=== PATIENT | female | born 1980 | race Caucasian/White ===

== ENCOUNTER 2017-10-08 11:02 | Emergency (ER) | payer OTHER ==
[~2017-10-08] VITALS: Ht 157.4 cm; Wt 99.8 kg
[~2017-10-08 11:02] MED LIST: AMOXICILLIN500 MG PO; ANAPROX DS550 MG PO; ANUSOL-HC25 MG RC; ATIVAN1 MG PO; AUGMENTIN 875875 MG PO; AVPAK AZITHROM250 M1 PO; BACTRIM DS 8001 TA1 PO; BENTYL10 MG PO; CIPROFLOXACIN500 MG PO; CLARITIN10 MG PO; DARVOCET N 1001 TAB PO; DAYPRO600 M1 PO; EFFEXOR XR37.5 MG PO; FLONASE 0.05% 121 EA NAS; HYDROCODONE BIT1 T11 PO; IBU-6600 MG PO; IBU800 MG PO; KEFLEX500 MG PO; LOMOTIL 0.025 M1 TA1 PO; MACROBID100 M1 PO; MOTRIN800 MG PO; NKHM; NO DAILY MEDS; ONDANSETRON HYDR4 M1 PO; ONDANSETRON2 MG/ML PO; OXYCODONE AND A1 T12 PO; PENICILLIN VK500 MG PO; PHENERGAN25 M1 PO; PREDNICOT20 MG PO; PRENATAL1 TA1 PO; PYRIDIUM100 MG PO; ZITHROMAX Z PA250 MG PO; ZOFRAN ODT4 MG SL; ZOFRAN ODT8 MG PO; ZYRTEC10 MG PO; Zofran4 MG PO
[2017-10-08 11:13] VITALS: BP 132/84
[2017-10-08] MEDS ORDERED: NAPROSYN500 MG PO (11:14)
== END 2017-10-08 12:23 | disposition home or self-care (01) ==
LOC: ED 11:02
DX: S93.402A Sprain of unspecified ligament of left ankle, initial encounter (principal); R03.0 Elevated blood-pressure reading, without diagnosis of hypertension; F10.10 Alcohol abuse, uncomplicated; Z79.899 Other long term (current) drug therapy; W19.XXXA Unspecified fall, initial encounter; Y93.89 Activity, other specified; Y92.89 Other specified places as the place of occurrence of the external cause; Y99.8 Other external cause status

== ENCOUNTER 2018-07-26 18:48 | Emergency (ER) | payer OTHER ==
[~2018-07-26] VITALS: Ht 157.4 cm; Wt 98.9 kg
[~2018-07-26 18:48] MED LIST changes: +NAPROSYN500 MG PO
[2018-07-26 18:51] VITALS: BP 106/68
[2018-07-26] MEDS ORDERED: AVPAK AZITHROM250 MG PO (19:35)
[2018-07-26] MEDS ORDERED: PREDNISONE20 M1 PO (19:35)
== END 2018-07-26 20:21 | disposition home or self-care (01) ==
LOC: ED 18:48
DX: J02.9 Acute pharyngitis, unspecified (principal); J06.9 Acute upper respiratory infection, unspecified; Z98.890 Other specified postprocedural states; Z79.1 Long term (current) use of non-steroidal anti-inflammatories (NSAID); Z79.899 Other long term (current) drug therapy

== ENCOUNTER 2019-08-30 17:20 | Emergency (ER) | payer OTHER ==
[~2019-08-30] VITALS: Ht 157.4 cm; Wt 106.1 kg
[2019-08-30 17:20] VITALS: BP 159/91
[~2019-08-30 17:20] MED LIST changes: +AVPAK AZITHROM250 MG PO; +PREDNISONE20 M1 PO
[2019-08-30] MEDS ORDERED: NORCO 5-325 TA1 EACH PO (17:34)
[2019-08-30] MEDS ORDERED: CLINDAMYCIN HC300 MG PO (17:34)
== END 2019-08-30 17:48 | disposition home or self-care (01) ==
LOC: ED 17:20
DX: K08.89 Other specified disorders of teeth and supporting structures (principal)

== ENCOUNTER 2019-08-30 22:01 | Emergency (ER) | payer OTHER ==
[~2019-08-30] VITALS: Ht 157.4 cm; Wt 106.1 kg
[~2019-08-30 22:01] MED LIST changes: +CLINDAMYCIN HC300 MG PO; +NORCO 5-325 TA1 EACH PO
[2019-08-30 22:02] VITALS: BP 157/89
== END 2019-08-31 01:49 | disposition home or self-care (01) ==
LOC: ED 22:01
DX: K08.89 Other specified disorders of teeth and supporting structures (principal)

== ENCOUNTER 2019-09-02 22:34 | Emergency (ER) | payer OTHER ==
[~2019-09-02] VITALS: Ht 157.4 cm; Wt 104.3 kg
[2019-09-02 22:35] VITALS: BP 157/96
[2019-09-03] MEDS ORDERED: CLINDAMYCIN HC300 MG PO (03:30)
[2019-09-03] MEDS ORDERED: Percocet 325 MG1 TAB PO (03:30)
[2019-09-03] MEDS ORDERED: ZOFRAN4 MG PO (03:41)
[2019-09-03] MEDS ORDERED: DIFLUCAN150 MG PO (03:41)
== END 2019-09-03 04:45 | disposition home or self-care (01) ==
LOC: ED 22:34
DX: K04.7 Periapical abscess without sinus (principal); K02.9 Dental caries, unspecified

== ENCOUNTER → 2020-10-08 | Outpatient (CLI) | payer OTHER ==
[~2020-10-08] MED LIST changes: +DIFLUCAN150 MG PO; +PROVENTIL HFA6.7 GM INH; +Percocet 325 MG1 TAB PO; +ZITHROMAX250 MG PO; +ZOFRAN4 MG PO
== END | disposition home or self-care (01) ==
LOC: COVID19 15:09
PROVIDERS: ATTEND Internal Medicine
DX: Z20.822 Contact with and (suspected) exposure to COVID-19 (principal)

== ENCOUNTER 2020-10-21 09:48 | Emergency (ER) | payer OTHER ==
[~2020-10-21] VITALS: Wt 99.8 kg
[~2020-10-21 09:48] MED LIST changes: -PROVENTIL HFA6.7 GM INH; -ZITHROMAX250 MG PO
[2020-10-21 09:53] VITALS: BP 140/84
[2020-10-21 10:41] LABS: EOS % 0.4 % (1.0-4.0); LYMPH # 0.9 10*3/uL (1.3-4.4); LYMPH % 18.7 % (27.0-41.0); MEAN CELL VOLUME 80.8 fl (81.0-99.0); MEAN CORPUSCULAR HGB 23.4 pg (27.0-31.0); MEAN PLATELET VOLUME 9.5 fl (9.6-12.3); MONO # 0.4 10*3/uL (0.1-1.0); MONO % 7.6 % (3.0-9.0); NEUT # 3.4 10*3/uL (2.3-7.9); NEUT % 73.1 % (47.0-73.0); PLATELET COUNT AUTOMATED 292 10*3/uL (130-400); RED BLOOD COUNT 4.95 10*6/uL (4.10-5.10); WHITE BLOOD COUNT 4.6 10*3/uL (4.8-10.8)
[2020-10-21 10:52] LABS: INTERNATIONAL NORM RATIO 0.9 (2.0-3.5)
[2020-10-21 10:59] LABS: ALBUMIN 3.3 gm/dl (3.1-4.5); ALKALINE PHOSPHATASE 84 U/L (45-117); BUN 14 mg/dl (7-24); CHLORIDE 110 mmol/L (98-107); CREATININE 0.71 mg/dL (0.55-1.02); LIPASE 115 U/L (73-393); POTASSIUM 3.4 mmol/L (3.5-5.1); SGOT/AST 31 IU/L (3-35); SGPT/ALT 45 U/L (12-78); SODIUM 140 mmol/L (136-145); TOTAL PROTEIN 7.6 gm/dL (6.4-8.2)
[2020-10-21 11:00] LABS: TROPONIN I < 0.015 ng/ml (<0.045)
[2020-10-21] MEDS ORDERED: PROVENTIL HFA6.7 GM INH ×3 (14:09→14:28)
[2020-10-21] MEDS ORDERED: ZITHROMAX250 MG PO ×3 (14:09→14:28)
[2020-10-21] MEDS ORDERED: PREDNISONE20 M1 PO ×3 (14:09→14:28)
== END 2020-10-21 14:28 | disposition home or self-care (01) ==
LOC: ED 09:48
PROVIDERS: Physician Assistant
DX: U07.1 COVID-19 (principal); R19.7 Diarrhea, unspecified; F41.9 Anxiety disorder, unspecified; Z79.2 Long term (current) use of antibiotics; Z79.899 Other long term (current) drug therapy; Z90.49 Acquired absence of other specified parts of digestive tract; Z90.89 Acquired absence of other organs

== ENCOUNTER 2020-12-12 22:45 | Emergency (ER) | payer OTHER ==
[~2020-12-12] VITALS: Ht 157.4 cm; Wt 99.8 kg
[~2020-12-12 22:45] MED LIST changes: +PROVENTIL HFA6.7 GM INH; +ZITHROMAX250 MG PO
[2020-12-12 22:53] VITALS: BP 147/95
[2020-12-13 00:08] LABS: MEAN CORPUSCULAR HGB 26.3 pg (27.0-31.0); MEAN PLATELET VOLUME 9.3 fl (9.6-12.3); PLATELET COUNT AUTOMATED 332 10*3/uL (130-400); RED BLOOD COUNT 4.94 10*6/uL (4.10-5.10); RED CELL DISTRI WIDTH 19.7 % (0-14.5); WHITE BLOOD COUNT 14.2 10*3/uL (4.8-10.8)
[2020-12-13 00:23] LABS: ALBUMIN 3.4 gm/dl (3.1-4.5); ALKALINE PHOSPHATASE 94 U/L (45-117); BUN 15 mg/dl (7-24); CHLORIDE 108 mmol/L (98-107); CREATININE 0.76 mg/dL (0.55-1.02); POTASSIUM 3.9 mmol/L (3.5-5.1); SGOT/AST 17 IU/L (3-35); SGPT/ALT 30 U/L (12-78); SODIUM 141 mmol/L (136-145); TOTAL PROTEIN 7.3 gm/dL (6.4-8.2)
[2020-12-13 00:25] LABS: BILIRUBIN Negative (Negative); BLOOD 3+ (Negative); CLARITY Clear (Clear); COLOR Dark Yellow (Yellow); GLUCOSE Negative (Negative); KETONE Trace (Negative); LEUKO ESTERASE Trace (Negative); NITRITE Negative (Negative); PH 6.5 (4.5-8.0); SPECIFIC GRAVITY >= 1.030 (1.001-1.030)
[2020-12-13 00:35] LABS: PLATELET SUFFICIENCY NORMAL (NORMAL); TOTAL CELLS COUNTED 100 #CELLS
[2020-12-13 00:54] LABS: BACTERIA TRACE; EPITHELIAL CELLS 21-30; RBC 16-20 rbc/hpf (0-2)
== END 2020-12-13 03:38 | disposition home or self-care (01) ==
LOC: ED 22:45
PROVIDERS: Emergency Medicine
DX: K52.9 Noninfective gastroenteritis and colitis, unspecified (principal); R11.2 Nausea with vomiting, unspecified; Z79.2 Long term (current) use of antibiotics; Z79.899 Other long term (current) drug therapy; Z90.49 Acquired absence of other specified parts of digestive tract

== ENCOUNTER 2021-03-09 08:50 | Emergency (ER) | payer OTHER ==
[~2021-03-09] VITALS: Ht 160 cm; Wt 98.9 kg
[2021-03-09 09:03] VITALS: BP 132/85
[2021-03-09] MEDS ORDERED: TYLENOL325 M1 PO (10:08)
[2021-03-09] MEDS ORDERED: CYCLOBENZAPRINE10 MG PO (10:08)
[2021-03-09] MEDS ORDERED: NAPROXEN250 MG PO (10:08)
== END 2021-03-09 10:12 | disposition home or self-care (01) ==
LOC: ED 08:50
DX: M54.6 Pain in thoracic spine (principal); Z86.16 Personal history of COVID-19; Z90.49 Acquired absence of other specified parts of digestive tract; X50.0XXA Overexertion from strenuous movement or load, initial encounter; Y93.89 Activity, other specified; Y92.89 Other specified places as the place of occurrence of the external cause; Y99.8 Other external cause status

== ENCOUNTER → 2021-09-19 | Outpatient (CLI) | payer OTHER ==
[~2021-09-19] MED LIST changes: +CYCLOBENZAPRINE10 MG PO; +NAPROXEN250 MG PO; +TYLENOL325 M1 PO
== END | disposition home or self-care (01) ==
LOC: COVID19 15:16
PROVIDERS: ATTEND Internal Medicine
DX: Z11.52 Encounter for screening for COVID-19 (principal)

== ENCOUNTER 2022-12-01 22:22 | Emergency (ER) | payer OTHER ==
[~2022-12-01] VITALS: Ht 157.4 cm; Wt 90.7 kg
[2022-12-01] MEDS ORDERED: PROZAC20 MG PO (23:24)
[2022-12-01] MEDS ORDERED: PROZAC40 M1 PO (23:24)
[2022-12-01 23:26] VITALS: BP 145/91
[2022-12-02 00:46] LABS: HEMATOCRIT 48.2 % (37.0-47.0); MEAN CELL VOLUME 94.3 fl (81.0-99.0); MEAN CORPUSCULAR HGB 31.9 pg (27.0-31.0); MEAN CORPUSCULAR HGB CONC 33.8 g/dl (33.0-37.0); PLATELET COUNT AUTOMATED 302 10*3/uL (130-400); RED BLOOD COUNT 5.11 10*6/uL (4.10-5.10); RED CELL DISTRI WIDTH 12.6 % (0-14.5); WHITE BLOOD COUNT 20.9 10*3/uL (4.8-10.8)
[2022-12-02 00:48] LABS: MANUAL DIFF REFLEX YES
[2022-12-02 01:00] LABS: ALKALINE PHOSPHATASE 77 U/L (46-116); BUN 14 mg/dl (9-23); CHLORIDE 107 mmol/L (98-107); POTASSIUM 3.6 mmol/L (3.4-5.1); SGPT/ALT 23 U/L (10-49); TOTAL PROTEIN 6.9 gm/dL (6.0-8.0)
[2022-12-02 01:09] LABS: BASOPHILS 1 % (0-1); PLATELET SUFFICIENCY NORMAL (NORMAL); TOTAL CELLS COUNTED 100 #CELLS
[2022-12-02 01:10] LABS: TOXIC GRANULATION SLIGHT
== END 2022-12-02 07:17 | disposition home or self-care (01) ==
LOC: ED 22:22
PROVIDERS: Emergency Medicine
DX: K52.9 Noninfective gastroenteritis and colitis, unspecified (principal); R11.10 Vomiting, unspecified; F41.9 Anxiety disorder, unspecified; Z98.890 Other specified postprocedural states; Z90.89 Acquired absence of other organs; Z86.16 Personal history of COVID-19

== ENCOUNTER 2023-03-21 03:08 | Emergency (ER) | payer OTHER ==
[~2023-03-21 03:08] MED LIST changes: +PROZAC20 MG PO; +PROZAC40 M1 PO
[2023-03-21 03:16] VITALS: BP 159/92
[2023-03-21] MEDS ORDERED: NAPROXEN250 MG PO (04:17)
[2023-03-21] MEDS ORDERED: METHOCARBAMOL750 M1 PO (04:17)
== END 2023-03-21 04:26 | disposition home or self-care (01) ==
LOC: ED 03:08
DX: S20.212A Contusion of left front wall of thorax, initial encounter (principal); Z90.89 Acquired absence of other organs; Z98.890 Other specified postprocedural states; F41.9 Anxiety disorder, unspecified; Z86.16 Personal history of COVID-19; W18.30XA Fall on same level, unspecified, initial encounter; Y93.E1 Activity, personal bathing and showering; Y92.009 Unspecified place in unspecified non-institutional (private) residence as the place of occurrence of the external cause; Y99.8 Other external cause status

== ENCOUNTER 2023-11-09 21:45 | Emergency (ER) | payer OTHER ==
[~2023-11-09] VITALS: Ht 157.4 cm; Wt 102.1 kg
[~2023-11-09 21:45] MED LIST changes: +METHOCARBAMOL750 M1 PO
[2023-11-09 21:52] VITALS: BP 130/84
[2023-11-09] MEDS ORDERED: Ondansetron Hydrochloride 4 MG/2 ML VIAL IV ONE (21:55)
[2023-11-09] MEDS ORDERED: SODIUM CHLORIDE 0.9% 1,000 ML IV ONE (21:55)
[2023-11-09 22:07] LABS: HEMATOCRIT 47.8 % (37.0-47.0); MEAN CELL VOLUME 96.2 fl (81.0-99.0); MEAN CORPUSCULAR HGB 31.6 pg (27.0-31.0); MEAN CORPUSCULAR HGB CONC 32.8 g/dl (33.0-37.0); PLATELET COUNT AUTOMATED 300 10*3/uL (130-400); RED BLOOD COUNT 4.97 10*6/uL (4.10-5.10); RED CELL DISTRI WIDTH 12.9 % (0-14.5); WHITE BLOOD COUNT 16.2 10*3/uL (4.8-10.8)
[2023-11-09 22:09] LABS: MANUAL DIFF REFLEX YES
[2023-11-09] MEDS ORDERED: ACETAMINOPHEN 325 MG TAB PO ONE (22:20)
[2023-11-09 22:28] LABS: ALKALINE PHOSPHATASE 79 U/L (46-116); BUN 22 mg/dl (9-23); CHLORIDE 108 mmol/L (98-107); LIPASE 37 U/L (12-53); POTASSIUM 3.8 mmol/L (3.4-5.1); SGPT/ALT 21 U/L (5-49); TOTAL PROTEIN 7.1 gm/dL (6.0-8.0)
[2023-11-09 22:33] LABS: PLATELET SUFFICIENCY NORMAL (NORMAL); TOTAL CELLS COUNTED 100 #CELLS
[2023-11-10] MEDS ORDERED: ONDANSETRON4 MG SL (00:51)
== END 2023-11-10 00:58 | disposition home or self-care (01) ==
LOC: ED 21:45
PROVIDERS: Internal Medicine
DX: B34.9 Viral infection, unspecified (principal); D72.829 Elevated white blood cell count, unspecified; R11.2 Nausea with vomiting, unspecified; R19.7 Diarrhea, unspecified; F41.9 Anxiety disorder, unspecified; Z90.89 Acquired absence of other organs; Z90.49 Acquired absence of other specified parts of digestive tract; Z98.890 Other specified postprocedural states

== ENCOUNTER 2024-10-12 17:46 | Emergency (ER) | payer OTHER ==
[~2024-10-12] VITALS: Wt 113.4 kg
[~2024-10-12 17:46] MED LIST changes: +ONDANSETRON4 MG SL
[2024-10-12 18:23] VITALS: BP 150/100
[2024-10-12] MEDS ORDERED: Ondansetron Hydrochloride 4 MG/2 ML VIAL IV ONE (18:30)
[2024-10-12] MEDS ORDERED: ACETAMINOPHEN 325 MG TAB PO ONE (18:30)
[2024-10-12] MEDS ORDERED: SODIUM CHLORIDE 0.9% 1,000 ML IV ONE (18:30)
[2024-10-12 19:19] LABS: HEMATOCRIT 46.9 % (37.0-47.0); MEAN CELL VOLUME 93.8 fl (81.0-99.0); MEAN CORPUSCULAR HGB 30.8 pg (27.0-31.0); MEAN CORPUSCULAR HGB CONC 32.8 g/dl (33.0-37.0); PLATELET COUNT AUTOMATED 356 10*3/uL (130-400); RED CELL DISTRI WIDTH 12.9 % (0-14.5); WHITE BLOOD COUNT 12.2 10*3/uL (4.8-10.8)
[2024-10-12 19:21] LABS: MANUAL DIFF REFLEX YES
[2024-10-12 19:38] LABS: BURR CELLS FEW; PLATELET SUFFICIENCY NORMAL (NORMAL); TOTAL CELLS COUNTED 100 #CELLS
[2024-10-12 19:40] LABS: ALKALINE PHOSPHATASE 83 U/L (46-116); BUN 12 mg/dl (9-23); CHLORIDE 105 mmol/L (98-107); LIPASE 34 U/L (12-53); POTASSIUM 3.6 mmol/L (3.4-5.1); SGPT/ALT 32 U/L (5-49); TOTAL PROTEIN 7.8 gm/dL (6.0-8.0)
[2024-10-12 20:46] LABS: BILIRUBIN Negative (Negative); BLOOD Negative (Negative); CLARITY Clear (Clear); COLOR Yellow (Yellow); GLUCOSE Negative (Negative); KETONE 2+ (Negative); LEUKO ESTERASE Negative (Negative); NITRITE Negative (Negative); PH 5.5 (4.5-8.0); SPECIFIC GRAVITY 1.025 (1.001-1.030); UROBILINOGEN 0.2 E.U./dl (0.0-1.0)
[2024-10-12 21:05] LABS: BACTERIA 1+; MUCOUS 1+
[2024-10-12] MEDS ORDERED: Ondansetron4 MG PO (21:11)
== END 2024-10-12 21:41 | disposition home or self-care (01) ==
LOC: ED 17:46
PROVIDERS: Physician Assistant Medical
DX: S46.911A Strain of unspecified muscle, fascia and tendon at shoulder and upper arm level, right arm, initial encounter (principal); Z20.822 Contact with and (suspected) exposure to COVID-19; K52.9 Noninfective gastroenteritis and colitis, unspecified; F41.9 Anxiety disorder, unspecified; Z90.89 Acquired absence of other organs; Z90.49 Acquired absence of other specified parts of digestive tract; Z98.890 Other specified postprocedural states; X58.XXXA Exposure to other specified factors, initial encounter; Y93.89 Activity, other specified; Y92.009 Unspecified place in unspecified non-institutional (private) residence as the place of occurrence of the external cause; Y99.8 Other external cause status

== ENCOUNTER 2025-01-03 07:31 | Emergency (ER) | payer OTHER ==
[~2025-01-03] VITALS: Ht 157.4 cm; Wt 115.7 kg
[~2025-01-03 07:31] MED LIST changes: +Ondansetron4 MG PO
[2025-01-03 07:48] VITALS: BP 157/87
[2025-01-03] MEDS ORDERED: BUSPIRONE HCL10 MG PO (07:49)
[2025-01-03] MEDS ORDERED: IOHEXOL 300 MG/ML 100 ML VIAL IV ONE (08:05)
[2025-01-03 08:23] LABS: BASO % 0.2 % (0.0-1.0); EOS # 0.1 10*3/uL (0.0-0.4); EOS % 1.6 % (1.0-4.0); HEMATOCRIT 43.6 % (37.0-47.0); MEAN CELL VOLUME 92.8 fl (81.0-99.0); MEAN CORPUSCULAR HGB 30.4 pg (27.0-31.0); MEAN CORPUSCULAR HGB CONC 32.8 g/dl (33.0-37.0); MEAN PLATELET VOLUME 8.9 fl (9.6-12.3); MONO # 0.6 10*3/uL (0.1-1.0); MONO % 7.4 % (3.0-9.0); NEUT # 5.6 10*3/uL (2.3-7.9); NEUT % 69.7 % (47.0-73.0); PLATELET COUNT AUTOMATED 326 10*3/uL (130-400); RED CELL DISTRI WIDTH 13.2 % (0-14.5); WHITE BLOOD COUNT 8.1 10*3/uL (4.8-10.8)
[2025-01-03 08:33] LABS: ACT PARTIAL THROMBO TIME 28.2 SECONDS (20.0-32.1)
[2025-01-03 08:46] LABS: ALKALINE PHOSPHATASE 76 U/L (46-116); BUN 14 mg/dl (9-23); CHLORIDE 104 mmol/L (98-107); ETHYL ALCOHOL < 3.0 mg/dl (<3); LIPASE 57 U/L (12-53); POTASSIUM 3.8 mmol/L (3.4-5.1); SGPT/ALT 26 U/L (5-49)
[2025-01-03 09:16] LABS: BILIRUBIN Negative (Negative); BLOOD Negative (Negative); CLARITY Clear (Clear); COLOR Yellow (Yellow); GLUCOSE Negative (Negative); KETONE Negative (Negative); LEUKO ESTERASE Negative (Negative); NITRITE Negative (Negative); PH 6.5 (4.5-8.0); SPECIFIC GRAVITY >= 1.030 (1.001-1.030); UROBILINOGEN 0.2 E.U./dl (0.0-1.0)
[2025-01-03 09:22] LABS: URINE AMPHETAMINES Negative (1000ng/ml); URINE BARBITURATES Negative (200ng/ml); URINE BENZODIAZEPINES Negative (200ng/ml); URINE CANNABINOIDS (THC) Negative (50ng/ml); URINE COCAINE Negative (300ng/ml); URINE METHADONE Negative (300ng/ml); URINE OPIATES Negative (300ng/ml); URINE PHENCYCLIDINE Negative (25ng/ml)
[2025-01-03 09:31] LABS: BACTERIA 1+; WBC 0-2 wbc/hpf (0-5)
[2025-01-03] MEDS ORDERED: NAPROSYN500 MG PO (10:05)
== END 2025-01-03 11:20 | disposition home or self-care (01) ==
LOC: ED 07:31
PROVIDERS: Internal Medicine
DX: S60.211A Contusion of right wrist, initial encounter (principal); S30.1XXA Contusion of abdominal wall, initial encounter; M79.631 Pain in right forearm; Z90.49 Acquired absence of other specified parts of digestive tract; Z79.899 Other long term (current) drug therapy; V49.49XA Driver injured in collision with other motor vehicles in traffic accident, initial encounter; Y93.I9 Activity, other involving external motion; Y92.488 Other paved roadways as the place of occurrence of the external cause; Y99.8 Other external cause status

== ENCOUNTER 2025-04-01 14:49 | Emergency (ER) | payer OTHER ==
[~2025-04-01] VITALS: Ht 160 cm; Wt 113.4 kg
[~2025-04-01 14:49] MED LIST changes: +BUSPIRONE HCL10 MG PO
[2025-04-01 14:59] VITALS: BP 150/108
[2025-04-01] MEDS ORDERED: Dexamethasone Sodium Phospha 20 MG/5 ML VIAL IM ONE (15:25)
[2025-04-01] MEDS ORDERED: PREDNISONE20 M1 PO (17:14)
== END 2025-04-01 17:23 | disposition home or self-care (01) ==
LOC: ED 14:49
DX: S86.911A Strain of unspecified muscle(s) and tendon(s) at lower leg level, right leg, initial encounter (principal); Z79.899 Other long term (current) drug therapy; Z90.49 Acquired absence of other specified parts of digestive tract; X50.1XXA Overexertion from prolonged static or awkward postures, initial encounter; Y93.89 Activity, other specified; Y92.129 Unspecified place in nursing home as the place of occurrence of the external cause; Y99.8 Other external cause status

== ENCOUNTER 2025-06-11 15:41 | Emergency (ER) | payer OTHER ==
[~2025-06-11] VITALS: Ht 160 cm; Wt 117.9 kg
[2025-06-11 16:09] VITALS: BP 156/95
[2025-06-11] MEDS ORDERED: BENZOCAINE 20% 11.9 GM GEL T STA (16:19)
== END 2025-06-11 17:25 | disposition home or self-care (01) ==
LOC: ED 15:41
DX: K08.89 Other specified disorders of teeth and supporting structures (principal); Z79.899 Other long term (current) drug therapy; Z90.49 Acquired absence of other specified parts of digestive tract

== ENCOUNTER 2025-09-13 02:09 | Emergency (ER) | payer OTHER ==
[~2025-09-13] VITALS: Ht 165.1 cm; Wt 108.9 kg
[2025-09-13 02:17] VITALS: BP 151/51
[2025-09-13 02:48] LABS: BILIRUBIN Negative (Negative); BLOOD Trace-Lysed (Negative); CLARITY Clear (Clear); COLOR Yellow (Yellow); KETONE Negative (Negative); LEUKO ESTERASE 1+ (Negative); NITRITE Negative (Negative); PH 7.0 (4.5-8.0); SPECIFIC GRAVITY 1.015 (1.001-1.030); UROBILINOGEN 1.0 E.U./dl (0.0-1.0)
[2025-09-13] MEDS ORDERED: PREDNISONE20 M1 PO (03:53)
== END 2025-09-13 04:05 | disposition home or self-care (01) ==
LOC: ED 02:09
PROVIDERS: Internal Medicine
DX: B33.8 Other specified viral diseases (principal); F41.9 Anxiety disorder, unspecified; R53.83 Other fatigue; Z20.822 Contact with and (suspected) exposure to COVID-19